=== PATIENT | female | born 1980 | race Caucasian/White ===

== ENCOUNTER 2018-10-04 00:41 | Inpatient (IN) | payer OTHER ==
[2018-10-04] MEDS ORDERED: ONDANSETRON 4 MG/2 ML VIAL IVP STA (01:09)
[2018-10-04] MEDS ORDERED: MORPHINE SULFATE 4 MG/ML SYRINGE IV STA (01:09)
[2018-10-04] MEDS ORDERED: SODIUM CHLORIDE 0.9% 1,000 ML IV STA (01:09)
--- NOTE | 2018-10-04 01:19 | ED ---
Abdominal Pain HPI - General Source: patient Mode of arrival: wheelchair Limitations: physical limitation <Aleja Castillo - Last Filed: 10/04/18 03:06> <Fifi Huston - Last Filed: 10/04/18 06:00> - General Chief Complaint: Abdominal Pain Stated Complaint: NVD, abdominal pain Time Seen by Provider: 10/04/18 00:52 - History of Present Illness Initial Comments: 37 year-old female patient presents to the emergency department today for evaluation of abdominal pain, fever, and chills. Patient states that she has been feverish and chilled over the last couple of days. States she did develop leg midepigastric abdominal pain last evening. Patient states the pain has moved to encompass her entire abdomen mostly in the center. She states that she did have an episode of vomiting this morning. States that she's had no appetite and has not been eating or drinking. States that when she attempts to urinate a causes increased pain to her abdomen but she denies any dysuria or hematuria with this. That the pain does radiate through to her back. Patient states that she did have a period 1 week ago, states it was longer than usual. She denies any current abnormal vaginal bleeding or discharge. She denies any upper respiratory symptoms. Denies any rash. Patient denies any recent rash, shortness breath, chest pain, diarrhea, constipation, back pain, numbness, tingling, dizziness, headache, visual changes, or any other complaints. (Aleja Castillo) - Related Data Allergies Allergy/AdvReac Type Severity Reaction Status Date / Time Penicillins Allergy Rash/Hives Verified 10/04/18 04:59 Review of Systems ROS Other: All systems not noted in ROS Statement are negative. <Aleja Castillo - Last Filed: 10/04/18 03:06> ROS Other: All systems not noted in ROS Statement are negative. <Fifi Huston - Last Filed: 10/04/18 06:00> ROS Statement: Those systems with pertinent positive or pertinent negative responses have been documented in the HPI. Past Medical History Past Medical History: Asthma, Hypertension Additional Past Medical History / Comment(s): Tubo-ovarian abscess (2017), Pelvic inflammatory disease (2017) History of Any Multi-Drug Resistant Organisms: None Reported Past Surgical History: Section Past Psychological History: No Psychological Hx Reported Smoking Status: Current every day smoker Past Alcohol Use History: None Reported Past Drug Use History: None Reported <Aleja Castillo - Last Filed: 10/04/18 03:06> General Exam Limitations: physical limitation General appearance: alert, in no apparent distress, other (This is a well- developed, well-nourished adult female patient in no acute distress. Vital signs upon presentation are temperature 99.8F, pulse 103, respirations 18, blood pressure 112/64, pulse ox 98% on room air.) Eye exam: Present: normal appearance, PERRL, EOMI. Absent: scleral icterus, conjunctival injection, periorbital swelling ENT exam: Present: normal exam, normal oropharynx, mucous membranes moist Respiratory exam: Present: normal lung sounds bilaterally. Absent: respiratory distress, wheezes, rales, rhonchi, stridor Cardiovascular Exam: Present: regular rate, normal rhythm, normal heart sounds. Absent: systolic murmur, diastolic murmur, rubs, gallop, clicks GI/Abdominal exam: Present: soft, tenderness (Midepigastric tenderness, right upper quadrant tenderness. Left lower quadrant tenderness), normal bowel sounds. Absent: distended, guarding, rebound, rigid Neurological exam: Present: alert, oriented X3, CN II-XII intact Psychiatric exam: Present: normal affect, normal mood Skin exam: Present: warm, dry, intact, normal color. Absent: rash <Aleja Casitllo - Last Filed: 10/04/18 03:06> Course Vital Signs 10/04/18 00:42 Temperature 99.8 F H Pulse Rate 103 H Respiratory 18 Rate Blood Pressure 112/64 O2 Sat by Pulse 98 Oximetry Medical Decision Making - Lab Data Result diagrams: 10/04/18 01:06 10/04/18 01:06 - Radiology Data Radiology results: report reviewed, image reviewed <Aleja Castillo - Last Filed: 10/04/18 03:06> - Lab Data Result diagrams: 10/04/18 01:06 10/04/18 01:06 <Fifi Huston - Last Filed: 10/04/18 06:00> - Medical Decision Making 37-year-old female patient presented to the emergency department today for evaluation of diffuse abdominal pain this started and the midepigastric region and migrated to the lower abdomen. Patient had one episode of vomiting this morning she is reporting fever and chills. Physical examination did reveal epigastric tenderness, left lower quadrant and right lower quadrant tenderness. Labs reviewed and did reveal white blood cell count of 19.2 with a neutrophil count of 16.2. Creatinine 1.12. Lactic acid 1.3. Urine negative for infection, hCG negative. Given white blood cell count and abdominal tenderness did perform CT of the abdomen and pelvis which did show evidence for right-sided of pelvic inflammatory disease with a 4 cm tubo-ovarian abscess. At that time and did perform pelvic examination which did reveal cervical discharge, cervical motion tenderness, and right adnexal tenderness. Cultures were sent for evaluation. My attending Dr. Huston was updated regarding the case. She did discuss the case with on-call anesthesiology faculty Dr. Akers. Patient will be admitted with IV antibiotics and pain management. (Aleja Castillo) I personally saw and evaluated the patient. Patient had received morphine and Dilaudid she reported her pain was still persistent in the right lower quadrant. She did admit to a history of PID and tubo-ovarian abscess in the past, at that time she had her IUD removed. Patient subsequently had an IUD replaced approximately one year ago. Patient reports she's been having this pain for a couple of weeks but worsened tonight. Review of the workup done by nurse practitioner is consistent with patient being septic secondary to tubo-ovarian abscess. Patient care was discussed with gynecology on-call Dr. Akers who recommends antibiotics with gentamicin Clinda. Patient has anaphylaxis to penicillins. Fluids, pain management and NPO (Fifi Huston) - Lab Data Lab Results 10/04/18 10/04/18 10/04/18 Range/Units 01:06 01:06 01:06 WBC 19.2 H (3.8-10.6) k/uL RBC 4.14 (3.80-5.40) m/uL Hgb 12.6 (11.4-16.0) gm/dL Hct 37.0 (34.0-46.0) % MCV 89.4 (80.0-100.0) fL MCH 30.4 (25.0-35.0) pg MCHC 34.0 (31.0-37.0) g/dL RDW 13.2 (11.5-15.5) % Plt Count 239 (150-450) k/uL Neutrophils % 84 % Lymphocytes % 9 % Monocytes % 5 % Eosinophils % 1 % Basophils % 0 % Neutrophils # 16.2 H (1.3-7.7) k/uL Lymphocytes # 1.8 (1.0-4.8) k/uL Monocytes # 0.9 (0-1.0) k/uL Eosinophils # 0.2 (0-0.7) k/uL Basophils # 0.0 (0-0.2) k/uL Sodium 134 L (137-145) mmol/L Potassium 3.6 (3.5-5.1) mmol/L Chloride 99 (98-107) mmol/L Carbon Dioxide 25 (22-30) mmol/L Anion Gap 10 mmol/L BUN 16 (7-17) mg/dL Creatinine 1.12 H (0.52-1.04) mg/dL Est GFR (CKD-EPI)AfAm 72 (>60 ml/min/1.73 sqM) Est GFR (CKD-EPI)NonAf 62 (>60 ml/min/1.73 sqM) Glucose 130 H (74-99) mg/dL Plasma Lactic Acid Frank (0.7-2.0) mmol/L Calcium 9.0 (8.4-10.2) mg/dL Total Bilirubin 0.6 (0.2-1.3) mg/dL AST 19 (14-36) U/L ALT 19 (9-52) U/L Alkaline Phosphatase 81 (38-126) U/L Total Protein 7.2 (6.3-8.2) g/dL Albumin 4.4 (3.5-5.0) g/dL Amylase 33 (30-110) U/L Lipase 28 (23-300) U/L Urine Color Urine Appearance (Clear) Urine pH (5.0-8.0) Ur Specific [place] (1.001-1.035) Urine Protein (Negative) Urine Glucose (UA) (Negative) Urine Ketones (Negative) Urine Blood (Negative) Urine Nitrite (Negative) Urine Bilirubin (Negative) Urine Urobilinogen (<2.0) mg/dL Ur Leukocyte Esterase (Negative) Urine RBC (0-5) /hpf Urine WBC (0-5) /hpf Ur Squamous Epith Cells (0-4) /hpf Urine Bacteria (None) /hpf Urine Mucus (None) /hpf Urine HCG, Qual Not Detected (Not Detectd) Trichomonas Ag (Rapid) (Negative) 10/04/18 10/04/18 10/04/18 Range/Units 01:06 01:15 03:00 WBC (3.8-10.6) k/uL RBC (3.80-5.40) m/uL Hgb (11.4-16.0) gm/dL Hct (34.0-46.0) % MCV (80.0-100.0) fL MCH (25.0-35.0) pg MCHC (31.0-37.0) g/dL RDW (11.5-15.5) % Plt Count (150-450) k/uL Neutrophils % % Lymphocytes % % Monocytes % % Eosinophils % % Basophils % % Neutrophils # (1.3-7.7) k/uL Lymphocytes # (1.0-4.8) k/uL Monocytes # (0-1.0) k/uL Eosinophils # (0-0.7) k/uL Basophils # (0-0.2) k/uL Sodium (137-145) mmol/L Potassium (3.5-5.1) mmol/L Chloride (98-107) mmol/L Carbon Dioxide (22-30) mmol/L Anion Gap mmol/L BUN (7-17) mg/dL Creatinine (0.52-1.04) mg/dL Est GFR (CKD-EPI)AfAm (>60 ml/min/1.73 sqM) Est GFR (CKD-EPI)NonAf (>60 ml/min/1.73 sqM) Glucose (74-99) mg/dL Plasma Lactic Acid Frank 1.3 (0.7-2.0) mmol/L Calcium (8.4-10.2) mg/dL Total Bilirubin (0.2-1.3) mg/dL AST (14-36) U/L ALT (9-52) U/L Alkaline Phosphatase (38-126) U/L Total Protein (6.3-8.2) g/dL Albumin (3.5-5.0) g/dL Amylase (30-110) U/L Lipase (23-300) U/L Urine Color Light Yellow Urine Appearance Clear (Clear) Urine pH 6.0 (5.0-8.0) Ur Specific [place] 1.009 (1.001-1.035) Urine Protein Negative (Negative) Urine Glucose (UA) Negative (Negative) Urine Ketones Negative (Negative) Urine Blood Negative (Negative) Urine Nitrite Negative (Negative) Urine Bilirubin Negative (Negative) Urine Urobilinogen <2.0 (<2.0) mg/dL Ur Leukocyte Esterase Small H (Negative) Urine RBC <1 (0-5) /hpf Urine WBC 2 (0-5) /hpf Ur Squamous Epith Cells 2 (0-4) /hpf Urine Bacteria Rare H (None) /hpf Urine Mucus Rare H (None) /hpf Urine HCG, Qual (Not Detectd) Trichomonas Ag (Rapid) Negative (Negative) - Radiology Data CT abdomen and pelvis with contrast was obtained. Report was reviewed in its entirety. Impression by Dr. Andino shows right-sided pelvic inflammatory disease is suspected 4 cm tubo-ovarian abscess. One view x-ray of the abdomen is obtained. Report was reviewed in its entirety. Impression by Dr. Andino shows normal abdominal x-ray. (Aleja Castillo) Disposition Decision to Admit Reason: Admit from EC Decision Date: 10/04/18 Decision Time: 03:10 <Aleja Castillo - Last Filed: 10/04/18 03:06> <Fifi Huston - Last Filed: 10/04/18 06:00> Clinical Impression: Pelvic inflammatory disease, Right tubo-ovarian abscess Disposition: ADMITTED IP TO THIS [facility] Condition: Serious
[2018-10-04 01:20] LABS: Basophils % (A) 0 %; Eosinophils # (A) 0.2 k/uL (0-0.7); Eosinophils % (A) 1 %; HGB 12.6 gm/dL (11.4-16.0); Lymphocytes # (A) 1.8 k/uL (1.0-4.8); Lymphocytes % (A) 9 %; MCH 30.4 pg (25.0-35.0); MCV 89.4 fL (80.0-100.0); Mean Platelet Volume 7.1; Monocytes # (A) 0.9 k/uL (0-1.0); Monocytes % (A) 5 %; Neutrophils # (A) 16.2 k/uL (1.3-7.7); Neutrophils % (A) 84 %; Platelet Count 239 k/uL (150-450); RBC 4.14 m/uL (3.80-5.40); RDW 13.2 % (11.5-15.5); WBC 19.2 k/uL (3.8-10.6)
[2018-10-04 01:27] LABS: Appearance,Urine Clear (Clear); Bacteria,Urine Rare /hpf; Bilirubin,Urine Negative (Negative); Blood,Urine Negative (Negative); Color,Urine Light Yellow; Glucose,Urine (UA) Negative (Negative); Ketones,Urine Negative (Negative); Leukocyte Esterase,Urine Small (Negative); Mucus,Urine Rare /hpf; Nitrite,Urine Negative (Negative); Protein,Urine Negative (Negative); RBC,Urine <1 /hpf (0-5); Specific Gravity,Urine 1.009 (1.001-1.035); Squamous Epithelial Cell,Urine 2 /hpf (0-4); Urobilinogen,Urine <2.0 mg/dL (<2.0); WBC,Urine 2 /hpf (0-5)
[2018-10-04 01:28] LABS: Albumin 4.4 g/dL (3.5-5.0); Potassium 3.6 mmol/L (3.5-5.1); Total Bilirubin 0.6 mg/dL (0.2-1.3); Total Protein 7.2 g/dL (6.3-8.2)
--- NOTE | 2018-10-04 01:57 | XR ---
EXAM: XR Abdomen, 1 View CLINICAL HISTORY: ITS.REASON XR Reason: abdominal pain TECHNIQUE: Frontal supine view of the abdomen/pelvis. COMPARISON: No relevant prior studies available. FINDINGS: Gastrointestinal tract: Unremarkable. No dilation. Bones/joints: Unremarkable. IMPRESSION: Normal abdominal x-ray.
[2018-10-04] MEDS ORDERED: HYDROmorphone 1 MG/ML 1 ML SYRINGE IVP STA (02:00)
--- NOTE | 2018-10-04 02:22 | CT ---
EXAM: CT Abdomen and Pelvis With Intravenous Contrast CLINICAL HISTORY: ITS.REASON CT Reason: Pain TECHNIQUE: Axial computed tomography images of the abdomen and pelvis with intravenous contrast. This CT exam was performed using one or more of the following dose reduction techniques: automated exposure control, adjustment of the mA and/or kV according to patient size, and/or use of iterative reconstruction technique. COMPARISON: No relevant prior studies available. FINDINGS: Lung bases: Unremarkable. No mass. No consolidation. ABDOMEN: Liver: Unremarkable. No mass. Gallbladder and bile ducts: No abnormal ductal dilation or stones. Pancreas: Unremarkable. No mass. No ductal dilation. Spleen: Unremarkable. No splenomegaly. Adrenals: Unremarkable. No mass. Kidneys and ureters: Bilateral nephrolithiasis No hydronephrosis. Stomach and bowel: No obstruction. No mucosal thickening. PELVIS: Appendix: No findings to suggest acute appendicitis. Bladder: Unremarkable. No mass. Reproductive: The right fallopian tube is fluid-filled, thick-walled, and enhancing. A complex cystic right adnexal structure is present measuring 4 cm. ABDOMEN and PELVIS: Intraperitoneal space: Unremarkable. No free air. No significant fluid collection. Bones/joints: No acute fracture. No dislocation. Soft tissues: Unremarkable. Vasculature: No abdominal aortic aneurysm. Lymph nodes: Unremarkable. No enlarged lymph nodes. IMPRESSION: Right-sided pelvic inflammatory disease with suspected 4 cm tubo-ovarian abscess.
[2018-10-04] MEDS ORDERED: CLINDAMYCIN 600 MG in DEXTROSE 5% IN WATER 50 ML IVPB STA ×2 (03:04)
[2018-10-04] MEDS ORDERED: SODIUM CHLORIDE 0.9% IV ONE (03:04)
[2018-10-04] MEDS ORDERED: NALOXONE 0.4 MG/ML 1 ML VIAL IV PRN (03:04)
[2018-10-04] MEDS ORDERED: MORPHINE SULFATE 4 MG/ML SYRINGE IV PRN (03:04)
[2018-10-04] MEDS ORDERED: ONDANSETRON 4 MG/2 ML VIAL IVP PRN (03:04)
[2018-10-04] MEDS ORDERED: GENTAMICIN IV ONE (03:04)
[2018-10-04] MEDS: SODIUM CHLORIDE 0.9% 1,000 ML IV SCH ×3 (03:20→15:48)
[2018-10-04] MEDS ORDERED: GENTAMICIN 480 MG in SODIUM CHLORIDE 0.9% 100 ML IVPB SCH (04:00)
[2018-10-04] MEDS ORDERED: NICOTINE 21MG/24HR PATCH TRANSDERM STA (04:21)
[2018-10-04 04:59] VITALS: BMI 33.2
[2018-10-04] MEDS: HYDROmorphone 0.5 MG/0.5 ML SYRINGE IVP PRN ×3 (05:18→18:37)
[2018-10-04] MEDS: ACETAMINOPHEN TAB 325 MG TAB PO PRN ×3 (07:36→20:40)
[2018-10-04] MEDS ORDERED: hydrOXYzine HCL 10 MG TAB PO PRN (08:17)
--- NOTE | 2018-10-04 08:17 | P.HPOB ---
History of Present Illness H&P Date: 10/04/18 Chief Complaint: Abdominal pain This is a 37-year-old 3 para 2012 woman who presents after a 1 week history of worsening abdominal pain to the emergency room. She was found by computed tomography scan to have a 4 cm right tubo-ovarian abscess. She reports having decreased appetite, nausea, vomiting, fevers and abdominal pain at home 1 week. She was normally menstruating once per month and LMP was approximately 10 days ago and was normal. She has a copper IUD in place currently. She has a history of tubo-ovarian abscess in 2017 as well. Review of Systems Constitutional: Reports chills, Reports fatigue, Reports fever, Reports poor appetite Cardiovascular: Reports high blood pressure, Denies chest pain, Denies shortness of breath Respiratory: Denies cough Gastrointestinal: Reports abdominal pain, Reports constipation, Reports nausea, Reports vomiting, Denies BRBPR Genitourinary: Reports pelvic pain, Denies abnormal vaginal bleeding, Denies genital sores, Denies hematuria, Denies vaginal discharge, Denies vaginal odor Menstruation: Reports period normal Musculoskeletal: Reports low back pain Integumentary: Denies rash Neurological: Denies headaches Psychiatric: Reports depression Hematologic/Lymphatic: Denies easy bleeding, Denies easy bruising Past Medical History Past Medical History: Asthma, Hypertension Additional Past Medical History / Comment(s): Tubo-ovarian abscess (2017), Pelvic inflammatory disease (2017) History of Any Multi-Drug Resistant Organisms: MRSA Date of last positivie culture/infection: 11/2016 MDRO Source:: left arm Past Surgical History: Section Past Psychological History: Depression Smoking Status: Current every day smoker Past Alcohol Use History: Rare Additional Past Alcohol Use History / Comment(s): half ppd smoker Past Drug Use History: None Reported - Past Family History Mother Family Medical History: Asthma, Hyperlipidemia, Hypertension Father Family Medical History: Diabetes Mellitus Medications and Allergies Home Medications Medication Instructions Recorded Confirmed Type Multivitamins, Thera [Multivitamin 1 tab PO DAILY 10/04/18 10/04/18 History (formulary)] buPROPion HCL [Wellbutrin SR] 200 mg PO BID 10/04/18 10/04/18 History hydrOXYzine HCL 10 mg PO BID PRN 10/04/18 10/04/18 History traZODone HCL [Desyrel] 200 mg PO HS 10/04/18 10/04/18 History Allergies Allergy/AdvReac Type Severity Reaction Status Date / Time Penicillins Allergy Rash/Hives Verified 10/04/18 08:08 Exam Vital Signs Temp Pulse Pulse Resp BP BP Pulse Ox 10/04/18 04:40 98.5 F 94 16 106/59 99 10/04/18 00:42 99.8 F H 103 H 18 112/64 98 Intake and Output 10/03/18 10/04/18 10/04/18 22:59 06:59 14:59 Other: Weight 88.7 kg This is a female in no obvious distress. HEENT exam is unremarkable. Her breathing is unlabored and her lungs are clear. Her heart is a regular rate. The abdomen is tender in all 4 quadrants to deep palpation. No rebound, no guarding. Positive flank pain. Not distended. Low transverse skin incision consistent with history of sections. Pelvic exam is deferred as this was recently performed in the emergency room with cultures taken. The extremities are free of rash or edema and she does have multiple tattoos. Neurologically she is grossly intact and her mood and affect are normal. Results Result Diagrams: 10/04/18 01:06 10/04/18 01:06 Abnormal Lab Results - Last 24 Hours (Table) 10/04/18 10/04/18 10/04/18 Range/Units 01:06 01:06 01:06 WBC 19.2 H (3.8-10.6) k/uL Neutrophils # 16.2 H (1.3-7.7) k/uL Sodium 134 L (137-145) mmol/L Creatinine 1.12 H (0.52-1.04) mg/dL Glucose 130 H (74-99) mg/dL Ur Leukocyte Esterase Small H (Negative) Urine Bacteria Rare H (None) /hpf Urine Mucus Rare H (None) /hpf CT scan - abdomen: report reviewed CT scan - pelvis: report reviewed Assessment and Plan (1) Pelvic inflammatory disease Current Visit: Yes Status: Acute Code(s): N73.9 - FEMALE PELVIC INFLAMMATORY DISEASE, UNSPECIFIED SNOMED Code(s): 077394274 (2) Right tubo-ovarian abscess Current Visit: Yes Status: Acute Code(s): N70.93 - SALPINGITIS AND OOPHORITIS, UNSPECIFIED SNOMED Code(s): 17576975 Plan: This is a 37-year-old 3 para 2012 woman who presents with tubo-ovarian abscess and pelvic inflammatory disease. Cervical cultures and blood cultures are pending. Plan is for IV antibiotics for a minimum of 48 hours. Transvaginal pelvic ultrasound to better assess TOA is ordered. If She does not have symptomatic improvement as well as decrease in her white blood cell count the IUD will be removed. She currently is afebrile. Time with Patient: Less than 30
[2018-10-04] MEDS ORDERED: SODIUM CHLORIDE 0.9% IVPB SCH (09:00)
[2018-10-04] MEDS ORDERED: GENTAMICIN IVPB SCH (09:00)
[2018-10-04] MEDS: CLINDAMYCIN 900 MG in DEXTROSE 5% IN WATER 50 ML IVPB SCH ×6 (09:24→23:22)
[2018-10-04] MEDS: buPROPion SR 100 MG TABLET.ER PO SCH ×2 (09:24→20:43)
--- NOTE | 2018-10-04 09:56 | US ---
EXAMINATION TYPE: US transvaginal DATE OF EXAM: 10/04/2018 COMPARISON: CT dated 10/04/2018 CLINICAL HISTORY: TOA, IUD in place. Patient states having IUD placed in April 2017. Hx of C-secti ons. Exam was performed portable. Limited visualization due to unable to lift pelvis for better angle TECHNIQUE: Transvaginal (TV). Date of LMP: 09/23/2018, EXAM MEASUREMENTS: Uterus: 9.0 x 3.5 x 3.8 cm Endometrial Stripe: 0.3 cm Right Ovary: 4.9 x 3.0 x 3.5 cm 1. Uterus: Anteverted Limited visualization of fundal region 2. Endometrium: portions seen appear wnl. IUD seen in MARY region of endometrium. 3. Right Ovary: Limited visualization. Unable to differentiate abscess seen on CT vs Ovarian tissue due to limited visualization. 1.3 x 1.4 cm complex follicle versus small abscess is measured. 4. Left Ovary: Obscured by overlying bowel gas Spectral, color and waveform doppler imaging shows good arterial and venous flow within the right o vary; there is no evidence for ovarian torsion. 5. Bilateral Adnexa: cystic tubular structure seen in right adnexa with internal debris = 4.5 x 1.3 cm 6. Posterior cul-de-sac: no free fluid IMPRESSION: 1. Right adnexal tubular structure with internal debris is favored to represent either pyosalpinx or hematosalpinx. A complex follicle is seen adjacent to this versus small tubo-ovarian abscess measurin g 1.4 x 1.3 cm. 2. Nonvisualization of the left ovary due to bowel gas. 3. Intrauterine device appears appropriately placed centrally within the uterus.
[2018-10-04] MEDS: IBUPROFEN 400 MG TAB PO PRN ×3 (10:38→23:19)
[2018-10-04] MEDS ORDERED: CLINDAMYCIN 600 MG in DEXTROSE 5% IN WATER 50 ML IVPB SCH ×2 (11:30)
[2018-10-04] MEDS ORDERED: SODIUM CHLORIDE 0.9% 500 ML 500 ML IV ONE (20:29)
[2018-10-04] MEDS: DOCUSATE 100 MG CAP PO PRN (20:40)
[2018-10-04] MEDS: traZODone HCL 100 MG TAB PO SCH (23:19)
[2018-10-05] MEDS: ACETAMINOPHEN TAB 325 MG TAB PO PRN ×3 (05:21→18:09)
[2018-10-05] MEDS: GENTAMICIN 480 MG in SODIUM CHLORIDE 0.9% 100 ML IVPB SCH (05:22)
[2018-10-05] MEDS: SODIUM CHLORIDE 0.9% 1,000 ML IV SCH ×2 (05:22→16:26)
[2018-10-05 08:07] LABS: Basophils % (A) 0 %; Eosinophils # (A) 0.1 k/uL (0-0.7); Eosinophils % (A) 1 %; HCT 31.4 % (34.0-46.0); HGB 10.6 gm/dL (11.4-16.0); Lymphocytes % (A) 6 %; MCH 30.9 pg (25.0-35.0); MCHC 33.7 g/dL (31.0-37.0); MCV 91.6 fL (80.0-100.0); Mean Platelet Volume 7.3; Monocytes # (A) 0.6 k/uL (0-1.0); Monocytes % (A) 4 %; Neutrophils # (A) 14.6 k/uL (1.3-7.7); Neutrophils % (A) 88 %; Platelet Count 181 k/uL (150-450); RBC 3.43 m/uL (3.80-5.40); RDW 13.1 % (11.5-15.5); WBC 16.5 k/uL (3.8-10.6)
--- NOTE | 2018-10-05 08:25 | P.PN ---
Subjective Progress Note Date: 10/05/18 Principal diagnosis: Right tubo-ovarian abscess She reports feeling somewhat better today however still is complaining of generalized abdominal pain mainly in the upper abdomen and the left upper quadrant. She reports she does not remember the last time she had a bowel movement. Her appetite is minimal. Transvaginal ultrasound done yesterday confirms 4.5 x 1.5 cm right structure consistent with the pyosalpinx. Objective - Vital Signs Vital signs: Vital Signs Temp 98.4 F 10/05/18 05:27 Pulse 68 10/05/18 05:27 Resp 18 10/05/18 05:27 BP 84/52 10/05/18 05:27 Pulse Ox 98 10/05/18 05:27 Intake & Output 10/04/18 10/05/18 10/05/18 18:59 06:59 18:59 Output Total 850 Balance -850 Output: Urine 850 Other: Voiding Method Toilet Toilet # Voids 2 - Constitutional General appearance: Present: average body habitus, no acute distress - Respiratory Respiratory: bilateral: CTA - Cardiovascular Rhythm: regular - Gastrointestinal General gastrointestinal: Present: tenderness. Absent: distended Localized gastrointestinal: tender: LUQ, LLQ, epigastric periumbilical - Psychiatric Psychiatric: Present: appropriate affect - Labs CBC & Chem 7: 10/05/18 07:33 10/04/18 01:06 Labs: Abnormal Lab Results - Last 24 Hours (Table) 10/05/18 Range/Units 07:33 WBC 16.5 H (3.8-10.6) k/uL RBC 3.43 L (3.80-5.40) m/uL Hgb 10.6 L (11.4-16.0) gm/dL Hct 31.4 L (34.0-46.0) % Neutrophils # 14.6 H (1.3-7.7) k/uL Microbiology - Last 24 Hours (Table) 10/04/18 01:15 Blood Culture - Preliminary Blood No Growth after 24 hours 10/04/18 03:00 Genital Culture - Preliminary Vaginal - Imaging and Cardiology US - abdomen: report reviewed Assessment and Plan (1) Pelvic inflammatory disease Current Visit: Yes Status: Acute Code(s): N73.9 - FEMALE PELVIC INFLAMMATORY DISEASE, UNSPECIFIED SNOMED Code(s): 509125782 (2) Right tubo-ovarian abscess Current Visit: Yes Status: Acute Code(s): N70.93 - SALPINGITIS AND OOPHORITIS, UNSPECIFIED SNOMED Code(s): 71342177 Plan: This is a 37-year-old 3 para 2011 woman who presents with tubo-ovarian abscess and pelvic inflammatory disease. Cervical cultures and blood cultures are preliminarily negative on clindamycin and gentamicin. She remains afebrile. WBC is decreased from 19-16.2. She is severely constipated she believe is the ongoing source of her pain at this time. This will be addressed today with probable discharge home tomorrow on oral antibiotics. Time with Patient: Less than 30
[2018-10-05] MEDS ORDERED: POLYETHYLENE GLYCOL 3350 17 GM POWD.PACK PO STA (08:26)
[2018-10-05 08:27] LABS: Calcium 7.5 mg/dL (8.4-10.2); Potassium 3.9 mmol/L (3.5-5.1)
[2018-10-05] MEDS: CLINDAMYCIN 900 MG in DEXTROSE 5% IN WATER 50 ML IVPB SCH ×4 (09:28→16:25)
[2018-10-05] MEDS: buPROPion SR 100 MG TABLET.ER PO SCH ×2 (09:28→13:52)
[2018-10-05] MEDS: NICOTINE 21MG/24HR PATCH TRANSDERM SCH (09:28)
[2018-10-05] MEDS: DOCUSATE 100 MG CAP PO PRN (09:30)
[2018-10-05] MEDS: IBUPROFEN 400 MG TAB PO PRN ×2 (09:30→16:25)
[2018-10-05 16:01] LABS: C. trachomatis,PCR Negative (Neg,Equiv); Chlamydia trachomatis Source Vagina
[2018-10-05 16:04] LABS: N. gonorrhoeae,PCR Negative (Neg,Equiv); Neisseria Source Vagina
[2018-10-05 20:50] VITALS: RESP 16
[2018-10-05] MEDS: traZODone HCL 100 MG TAB PO SCH (23:51)
[2018-10-06] MEDS: CLINDAMYCIN 900 MG in DEXTROSE 5% IN WATER 50 ML IVPB SCH ×4 (00:22→09:17)
[2018-10-06] MEDS: ACETAMINOPHEN TAB 325 MG TAB PO PRN ×2 (00:24→09:22)
[2018-10-06] MEDS: SODIUM CHLORIDE 0.9% 1,000 ML IV SCH (03:58)
[2018-10-06] MEDS: GENTAMICIN 480 MG in SODIUM CHLORIDE 0.9% 100 ML IVPB SCH (05:03)
--- NOTE | 2018-10-06 07:35 | P.DS ---
Providers Date of admission: 10/04/18 03:06 Expected date of discharge: 10/06/18 Attending physician: Sonia Akers Primary care physician: Kamila Allen - Discharge Diagnosis(es) (1) Pelvic inflammatory disease Current Visit: Yes Status: Acute (2) Right tubo-ovarian abscess Current Visit: Yes Status: Acute Hospital Course: This is a 37-year-old woman who was admitted from the emergency room on 10/04/2018 with tubo-ovarian abscess. She reports a one to two-week history of worsening nausea, vomiting, loss of appetite, fatigue and abdominal pain. She was found on pelvic imaging to have a 4.5 cm tubular-shaped mass consistent with a right hydrosalpinx or pyosalpinx. She also had an elevated white blood cell count of 19.5. She was afebrile. She was admitted and received 48 hours of IV clindamycin and gentamicin. She remained afebrile throughout her entire hospital stay and her white blood cell count did decrease. She had generalized abdominal pain however was severely constipated. This did improve significantly with bowel movements. She was able to tolerate a general diet without nausea or vomiting. She was ambulating and voiding without difficulty. Blood cultures and cervical cultures returned negative. She was therefore discharged home on hospital day 3 with oral antibiotics and instruction to follow up within a week with her primary project product manager. The patient has an intrauterine device that we'll need to be addressed. This was left in place as her cultures have been negative. Pertinent Studies: Pelvic ultrasound Patient Condition at Discharge: Good Plan - Discharge Summary New Discharge Prescriptions: New Doxycycline [Vibramycin] 100 mg PO BID 14 Days #28 cap No Action Multivitamins, Thera [Multivitamin (formulary)] 1 tab PO DAILY hydrOXYzine HCL 10 mg PO BID PRN PRN Reason: Anxiety traZODone HCL [Desyrel] 200 mg PO HS buPROPion HCL [Wellbutrin SR] 200 mg PO BID Discharge Medication List Multivitamins, Thera [Multivitamin (formulary)] 1 tab PO DAILY 10/04/18 [History] buPROPion HCL [Wellbutrin SR] 200 mg PO BID 10/04/18 [History] hydrOXYzine HCL 10 mg PO BID PRN 10/04/18 [History] traZODone HCL [Desyrel] 200 mg PO HS 10/04/18 [History] Doxycycline [Vibramycin] 100 mg PO BID 14 Days #28 cap 10/06/18 [Rx] Follow up Appointment(s)/Referral(s): Kamila Allen MD [Primary Care Provider] - 1 Week Discharge Disposition: HOME SELF-CARE
[2018-10-06] MEDS: NICOTINE 21MG/24HR PATCH TRANSDERM SCH (09:30)
[2018-10-06] MEDS: buPROPion SR 100 MG TABLET.ER PO SCH (09:30)
[2018-10-06 09:33] LABS: Basophils % (A) 0 %; Eosinophils % (A) 0 %; HCT 30.3 % (34.0-46.0); HGB 9.9 gm/dL (11.4-16.0); Lymphocytes % (A) 7 %; MCH 30.2 pg (25.0-35.0); MCHC 32.7 g/dL (31.0-37.0); MCV 92.5 fL (80.0-100.0); Monocytes # (A) 0.5 k/uL (0-1.0); Monocytes % (A) 3 %; Neutrophils # (A) 12.4 k/uL (1.3-7.7); Neutrophils % (A) 89 %; Platelet Count 231 k/uL (150-450); RBC 3.28 m/uL (3.80-5.40); RDW 12.5 % (11.5-15.5); WBC 13.9 k/uL (3.8-10.6)
[2018-10-06 10:12] VITALS: BP 134/76; PULSE 74
[2018-10-06 10:58] VITALS: TEMP 98.4
== END 2018-10-06 11:15 | disposition home or self-care (01) | DRG 759 ==
LOC: EC 00:41 → 6PED 03:06 → OBSVTOIN 03:06 → 6PED 10-05 22:48
PROVIDERS: ADMIT Obstetrics & Gynecology; ATTEND Obstetrics & Gynecology
DX: N70.03 Acute salpingitis and oophoritis (principal); N73.0 Acute parametritis and pelvic cellulitis; F17.210 Nicotine dependence, cigarettes, uncomplicated; F32.9 Major depressive disorder, single episode, unspecified; I10 Essential (primary) hypertension; J45.909 Unspecified asthma, uncomplicated; K59.00 Constipation, unspecified; Z97.5 Presence of (intrauterine) contraceptive device; Z88.0 Allergy status to penicillin; Z82.49 Family history of ischemic heart disease and other diseases of the circulatory system; Z82.5 Family history of asthma and other chronic lower respiratory diseases; Z83.3 Family history of diabetes mellitus
CPT/HCPCS: 36415; 74018; 74177; 76830; 80048; 80053; 80170; 81001; 81025; 82150; 83605; 83690; 85025; 87040; 87070; 87205; 87491; 87591; 87808; 96361; 96365; 96375; 99285